=== PATIENT | male | born 1960 | race Caucasian/White ===

== ENCOUNTER → 2019-11-30 10:00 | Outpatient (CLI) | payer BC, SELFPAY ==
[2019-11-30 11:08] LABS: Alanine Aminotransferase 57 IU/L (<50); Albumin 4.5 g/dL (3.5-5.0); Albumin Globulin Ratio 1.5 (1.0-2.8); Alkaline Phosphatase 88 U/L (38-126); Aspartate Aminotransferase 49 IU/L (17-59); BUN Creatinine Ratio 20.9 (6-22); Bilirubin Total 0.8 mg/dL (0.2-1.3); Blood Urea Nitrogen 18 mg/dL (9-20); Calcium 9.2 mg/dL (8.4-10.2); Carbon Dioxide 28 mmol/L (22-32); Chloride 107 mmol/L (98-107); Cholesterol 190 mg/dL (140-199); Estimated Glomerular Filt Rate > 60.0 mL/min (>60); Globulin 3.1 g/dL (1.7-4.1); Glucose 112 mg/dL (70-100); HDL Cholesterol 37 mg/dL (40-60); HEMOLYSIS < 15 (0-50); LDL Cholesterol Calculated 133 mg/dL (<100); Potassium 4.6 mmol/L (3.4-5.1); Sodium 141 mmol/L (137-145); Total Protein 7.6 g/dL (6.3-8.2); Triglycerides 99 mg/dL (35-150)
[2019-11-30 11:16] LABS: Hemoglobin A1C% w Est Avg Glu 5.6 % (4.0-6.0)
[2019-11-30 11:35] LABS: Prostate Specific Antigen Scrn 0.338 ng/mL (0.1-4.0)
[2019-11-30 11:38] LABS: Thyroid Stimulating Hormone 0.64 uIU/mL (0.47-4.68)
== END ==
PROVIDERS: PCP Family Medicine; Referring Provider Family Medicine; Visit Provider Family Medicine
DX: Z13.1 Encounter for screening for diabetes mellitus (principal); Z13.29 Encounter for screening for other suspected endocrine disorder; E78.5 Hyperlipidemia, unspecified; R20.0 Anesthesia of skin
CPT/HCPCS: 36415; 80053; 80061; 83036; 84443; G0103

== ENCOUNTER → 2020-01-12 09:20 | Outpatient (CLI) | payer BC, SELFPAY ==
--- NOTE | 2020-01-12 09:22 | DI.RAD.S_ITS ---
PROCEDURE: XR HAND RT MIN 3V INDICATIONS: 3rd digit pain PIP to DIP, no injury, r/o bony abnormality TECHNIQUE: 3 views of the hand(s) acquired. COMPARISON: [facility], CR, KNEE 3V LEFT, 08/21/2011, 8:36. FINDINGS: Bones: No fractures or dislocations. Carpal bones are normally aligned. No suspicious bony lesions. Soft tissues: No suspicious soft tissue calcifications. IMPRESSION: No acute osseous abnormality of the right hand. Dictated by: Zeyad Salazar M.D. on 01/12/2020 at 8:56 Approved by: Zeyad Salazar M.D. on 01/12/2020 at 8:57
== END ==
PROVIDERS: PCP Family Medicine; Referring Provider Physician Assistant; Visit Provider Physician Assistant
DX: M79.644 Pain in right finger(s) (principal)
CPT/HCPCS: 73130

== ENCOUNTER → 2020-01-13 14:00 | Outpatient (CLI) | payer BC, SELFPAY ==
[2020-01-13 15:19] LABS: Erythrocyte Sedimentation Rate 4 MM/HR (0-15)
[2020-01-13 15:35] LABS: C-Reactive Protein Quant 0.7 mg/dL (<1.0)
== END ==
PROVIDERS: PCP Family Medicine; Referring Provider Physician Assistant; Visit Provider Physician Assistant
DX: M79.644 Pain in right finger(s) (principal)
CPT/HCPCS: 36415; 85651; 86140

== ENCOUNTER → 2020-06-03 13:09 | Outpatient (CLI) | payer BC, SELFPAY ==
[2020-06-03 13:41] LABS: Semen Sperm Prescence Post-Vas Absent (ABSENT)
== END ==
PROVIDERS: PCP Family Medicine; Referring Provider Specialist; Visit Provider Specialist
DX: Z98.52 Vasectomy status (principal)
CPT/HCPCS: 89321

== ENCOUNTER → 2022-02-13 12:30 | Outpatient (CLI) | payer OTHER, SELFPAY ==
[2022-02-13 13:15] LABS: Add Manual Diff / Slide Review NO; Basophils Absolute Auto 0 /uL (0-100); Basophils Percent Auto 0.6 % (0-2); Eosinophils Absolute Auto 200 /uL (0-450); Eosinophils Percent Auto 4.9 % (2-4); Hematocrit 43.4 % (41-53); Hemoglobin 15.3 g/dL (13.5-17.5); Lymphocytes Absolute Auto 1500 /uL (1100-4500); Lymphocytes Percent Auto 32.1 % (25-40); Mean Corpuscular HGB Conc 35.2 % (30-36); Mean Corpuscular Hemoglobin 30.4 PG (26-34); Mean Corpuscular Volume 86.5 fL (80-100); Monocytes Absolute Auto 500 /uL (0-900); Neutrophils Absolute Auto 2500 /uL (1500-7000); Neutrophils Percent Auto 52.4 % (50-75); Platelet Count 208 X10^3/uL (150-400); Red Blood Cell Count 5.02 X10^6/uL (4.5-5.9); Red Cell Distribution Width 12.4 % (11.6-14.8); White Blood Cell Count 4.8 X10^3/uL (4.5-11.0)
[2022-02-13 13:34] LABS: Alanine Aminotransferase 115 IU/L (<50); Albumin 4.4 g/dL (3.5-5.0); Albumin Globulin Ratio 1.4 (1.0-2.8); Alkaline Phosphatase 77 U/L (38-126); Aspartate Aminotransferase 67 IU/L (17-59); BUN Creatinine Ratio 18.2 (6-22); Bilirubin Total 0.9 mg/dL (0.2-1.3); Blood Urea Nitrogen 16 mg/dL (9-20); Calcium 8.5 mg/dL (8.4-10.2); Carbon Dioxide 28 mmol/L (22-32); Chloride 102 mmol/L (98-107); Cholesterol 182 mg/dL (140-199); Estimated Glomerular Filt Rate > 60 mL/min (>60); Globulin 3.2 g/dL (1.7-4.1); Glucose 96 mg/dL (80-110); HDL Cholesterol 39 mg/dL (40-60); LDL Cholesterol Calculated 112 mg/dL (<100); Potassium 4.3 mmol/L (3.4-5.1); Sodium 138 mmol/L (137-145); Total Protein 7.6 g/dL (6.3-8.2); Triglycerides 154 mg/dL (35-150)
[2022-02-13 13:36] LABS: HEMOLYSIS 58 (0-50)
[2022-02-13 14:03] LABS: Prostate Specific Antigen Scrn 0.372 ng/mL (0.1-4.0)
[2022-02-13 14:47] LABS: Thyroid Stimulating Hormone 0.839 uIU/mL (0.47-4.68)
== END ==
PROVIDERS: PCP Family Medicine; Referring Provider Family Medicine; Visit Provider Family Medicine
DX: Z00.00 Encounter for general adult medical examination without abnormal findings (principal); E78.5 Hyperlipidemia, unspecified; Z13.29 Encounter for screening for other suspected endocrine disorder; Z13.6 Encounter for screening for cardiovascular disorders; Z12.5 Encounter for screening for malignant neoplasm of prostate
CPT/HCPCS: 36415; 80053; 80061; 84443; 85025; G0103

== ENCOUNTER → 2022-10-03 10:14 | Outpatient (CLI) | payer OTHER, SELFPAY ==
[2022-10-03 11:32] LABS: Alanine Aminotransferase 54 IU/L (<50); Albumin 4.3 g/dL (3.5-5.0); Albumin Globulin Ratio 1.2 (1.0-2.8); Alkaline Phosphatase 75 U/L (38-126); Aspartate Aminotransferase 46 IU/L (17-59); BUN Creatinine Ratio 15.7 (6-22); Bilirubin Total 0.9 mg/dL (0.2-1.3); Blood Urea Nitrogen 14 mg/dL (9-20); Calcium 8.8 mg/dL (8.4-10.2); Carbon Dioxide 25 mmol/L (22-32); Chloride 104 mmol/L (98-107); Estimated Glomerular Filt Rate > 60 mL/min (>60); Globulin 3.5 g/dL (1.7-4.1); Glucose 108 mg/dL (80-110); HEMOLYSIS 33 (0-50); Potassium 4.2 mmol/L (3.4-5.1); Sodium 138 mmol/L (137-145); Total Protein 7.8 g/dL (6.3-8.2)
[2022-10-04 18:51] LABS: Hep C Virus Ab w/Reflex Quant NEGATIVE s/c (NEGATIVE)
== END ==
PROVIDERS: PCP Family Medicine; Referring Provider Family Medicine; Visit Provider Family Medicine
DX: R79.89 Other specified abnormal findings of blood chemistry (principal)
CPT/HCPCS: 36415; 80053; 86803

== ENCOUNTER → 2022-10-05 16:22 | Outpatient (CLI) | payer OTHER, SELFPAY ==
--- NOTE | 2022-10-05 16:23 | DI.RAD.S_ITS ---
PROCEDURE: XR CHEST 2V INDICATIONS: Chronic cough increasing TECHNIQUE: 2 views of the chest were acquired. COMPARISON: None. FINDINGS: Surgical changes and devices: None. Lungs and pleura: Lungs are clear. No pleural effusions or pneumothorax. Mediastinum: Mediastinal contours are normal. Heart size is normal. Bones and chest wall: No suspicious bony abnormalities. Soft tissues appear unremarkable. IMPRESSION: No acute cardiopulmonary pathology. Dictated by: Abhay Soto M.D. on 10/05/2022 at 16:49 Approved by: Abhay Soto M.D. on 10/05/2022 at 16:49
== END ==
PROVIDERS: PCP Family Medicine; Referring Provider Family Medicine; Visit Provider Family Medicine
DX: R05.3 Chronic cough (principal)
CPT/HCPCS: 71046

== ENCOUNTER → 2024-03-10 10:26 | Outpatient (CLI) | payer OTHER, SELFPAY ==
[2024-03-10 10:58] LABS: Add Manual Diff / Slide Review NO; Basophils Absolute Auto 0 /uL (0-100); Basophils Percent Auto 0.4 % (0-2); Eosinophils Absolute Auto 200 /uL (0-450); Eosinophils Percent Auto 4.2 % (2-4); Hematocrit 44.4 % (41-53); Hemoglobin 15.2 g/dL (13.5-17.5); Lymphocytes Absolute Auto 1400 /uL (1100-4500); Lymphocytes Percent Auto 24.9 % (25-40); Mean Corpuscular HGB Conc 34.2 % (30-36); Mean Corpuscular Hemoglobin 30.1 PG (26-34); Mean Corpuscular Volume 87.8 fL (80-100); Monocytes Absolute Auto 500 /uL (0-900); Monocytes Percent Auto 9.3 % (3-14); Neutrophils Absolute Auto 3300 /uL (1500-7000); Neutrophils Percent Auto 61.2 % (50-75); Platelet Count 224 X10^3/uL (150-400); Red Blood Cell Count 5.06 X10^6/uL (4.5-5.9); White Blood Cell Count 5.5 X10^3/uL (4.5-11.0)
[2024-03-10 11:12] LABS: Alanine Aminotransferase 84 IU/L (<50); Albumin 4.3 g/dL (3.5-5.0); Albumin Globulin Ratio 1.3 (1.0-2.8); Alkaline Phosphatase 63 U/L (38-126); Aspartate Aminotransferase 69 IU/L (17-59); BUN Creatinine Ratio 20.6 (6-22); Bilirubin Total 0.9 mg/dL (0.2-1.3); Blood Urea Nitrogen 20 mg/dL (9-20); Calcium 9.2 mg/dL (8.4-10.2); Carbon Dioxide 26 mmol/L (22-32); Chloride 103 mmol/L (98-107); Cholesterol 195 mg/dL (140-199); Estimated Glomerular Filt Rate > 60 mL/min (>60); Globulin 3.4 g/dL (1.7-4.1); Glucose 108 mg/dL (80-110); HDL Cholesterol 38 mg/dL (40-60); LDL Cholesterol Calculated 103 mg/dL (<100); Potassium 4.3 mmol/L (3.4-5.1); Sodium 136 mmol/L (137-145); Total Protein 7.7 g/dL (6.3-8.2); Triglycerides 272 mg/dL (35-150)
[2024-03-10 11:26] LABS: HEMOLYSIS 61 (0-50)
[2024-03-10 18:13] LABS: Prostate Specific Antigen 0.513 ng/mL (0.10-4.00)
== END ==
PROVIDERS: PCP Family Medicine; Referring Provider Family Medicine; Visit Provider Family Medicine
DX: Z00.00 Encounter for general adult medical examination without abnormal findings (principal); I10 Essential (primary) hypertension; E78.5 Hyperlipidemia, unspecified
CPT/HCPCS: 36415; 80053; 80061; 84153; 85025

== ENCOUNTER → 2025-04-13 15:55 | Outpatient (CLI) | payer OTHER, SELFPAY ==
[2025-04-13 17:15] LABS: Add Manual Diff / Slide Review NO; Hematocrit 46.2 % (41-53); Hemoglobin 16.0 g/dL (13.5-17.5); Lymphocytes Absolute Auto 1500 /uL (1100-4500); Mean Corpuscular HGB Conc 34.6 % (30-36); Mean Corpuscular Hemoglobin 30.1 PG (26-34); Mean Corpuscular Volume 87.2 fL (80-100); Platelet Count 206 X10^3/uL (150-400)
[2025-04-13 17:42] LABS: Alanine Aminotransferase 220 IU/L (<50); Albumin 4.9 g/dL (3.5-5.0); Albumin Globulin Ratio 1.6 (1.0-2.8); Alkaline Phosphatase 89 U/L (38-126); Blood Urea Nitrogen 16 mg/dL (9-20); Calcium 9.5 mg/dL (8.4-10.2); Carbon Dioxide 23 mmol/L (22-32); Chloride 105 mmol/L (98-107); Cholesterol 225 mg/dL (140-199); Estimated Glomerular Filt Rate > 60 mL/min (>60); Globulin 3.0 g/dL (1.7-4.1); Glucose 106 mg/dL (70-99); HDL Cholesterol 45 mg/dL (40-60); HEMOLYSIS < 15 (0-50); Potassium 4.2 mmol/L (3.4-5.1); Sodium 140 mmol/L (137-145); Total Protein 7.9 g/dL (6.3-8.2); Triglycerides 247 mg/dL (35-150); Uric Acid 7.4 mg/dL (3.5-8.5)
[2025-04-13 18:11] LABS: TSH w/ Reflex to FT4 1.24 uIU/mL (0.47-4.68)
[2025-04-13 18:15] LABS: Prostate Specific Antigen 0.413 ng/mL (0.10-4.00)
== END ==
PROVIDERS: PCP Family Medicine; Referring Provider Family Medicine; Visit Provider Family Medicine
DX: Z00.00 Encounter for general adult medical examination without abnormal findings (principal); I10 Essential (primary) hypertension
CPT/HCPCS: 36415; 80053; 80061; 82172; 83090; 84153; 84443; 84550; 85025

== ENCOUNTER → 2025-05-12 07:58 | Outpatient (CLI) | payer OTHER, SELFPAY ==
--- NOTE | 2025-05-12 08:00 | DI.US.S_ITS ---
PROCEDURE: US ABDOMEN LIMITED INDICATIONS: RUQ evaluate liver for steatosis TECHNIQUE: Real-time focused scanning was performed of the abdomen, with image documentation. COMPARISON: None. FINDINGS: The liver demonstrates mildly enlarged size. The liver demonstrates generalized mildly increased echogenicity. This decreases ultrasound sensitivity for detection of hepatic masses. Mobile gallstones are seen. The gallbladder wall is not thickened, measuring 3 mm or less. No specific pericholecystic fluid is seen. The sonographic Quiros sign is negative. There is no biliary dilatation, the common bile duct measures 5 mm. No significant pancreatic abnormality is seen on these images. IMPRESSION: Mild fatty liver infiltration is seen. Mobile gallstones are seen, yet without additional sonographic signs of cholecystitis. Negative for biliary dilatation. Please correlate with physical examination findings, patient presentation, and laboratory values. Dictated by: Helder Cole M.D. on 05/12/2025 at 13:38 Approved by: Helder Cole M.D. on 05/12/2025 at 13:39
[2025-05-12 09:45] LABS: INR 1.1 (0.9-1.3); Prothrombin Time 13.0 SECONDS (9.4-12.5)
[2025-05-12 09:53] LABS: Alanine Aminotransferase 72 IU/L (<50); Albumin 4.9 g/dL (3.5-5.0); Albumin Globulin Ratio 1.7 (1.0-2.8); Alkaline Phosphatase 93 U/L (38-126); Globulin 2.9 g/dL (1.7-4.1); HEMOLYSIS < 15 (0-50); Total Protein 7.8 g/dL (6.3-8.2)
[2025-05-12 10:22] LABS: Hepatitis B Surface Antigen NEGATIVE s/c (NEGATIVE); TSH w/ Reflex to FT4 1.28 uIU/mL (0.47-4.68)
[2025-05-12 10:41] LABS: Hep C Virus Ab w/Reflex Quant NEGATIVE s/c (NEGATIVE)
--- OUTSIDE RECORDS SUMMARY | 2025-05-14 13:28 | XMS_ITS | Clinical Summary ---
Author Organization [facility] Address [address] [place] [address] Care Team Providers Care Scale Agent Name Role Phone Unavailable Primary Care Provider Unavailabl e Social History Tobacco Use Types Packs/Day Years Used Date Smoking Tobacco: Never Assessed Sex and Gender Information Value Date Recorded Sex Assigned at Not on file Legal Sex Male 6:11 PM PDT Gender Identity Not on file Sexual Orientation Not on file Plan of Treatment Not on file
--- OUTSIDE RECORDS SUMMARY | 2025-05-14 13:28 | XMS_ITS | Encounter Summary ---
Author Organization [facility] Address [address] [place] [address] Care Team Providers Care Doctor Of Nurse Anesthesia Practice Name Role Phone Unavailable Primary Care Provider Unavailabl e Prior Encounters Date Type Department Care Team Description 03/27/2025 1:00 PM PDT Office Visit [facility] [address] , [place] [address] [place] [phone] Kaity Royal DDS Encounter for dental examination and cleaning without abnormal findings (Primary Dx) Plan of Treatment Not on file Procedures Procedure Name Priority Date/Time Associated Diagnosis Comments INTRAORAL PHOTO Routine 03/27/2025 1:00 PM PDT INTRAORAL PHOTO Routine 03/27/2025 1:00 PM PDT INTRAORAL PHOTO Routine 03/27/2025 1:00 PM PDT INTRAORAL PHOTO Routine 03/27/2025 1:00 PM PDT ADDITIONAL X-RAY Routine 03/27/2025 1:00 PM PDT ADDITIONAL X-RAY Routine 03/27/2025 1:00 PM PDT ADDITIONAL X-RAY Routine 03/27/2025 1:00 PM PDT ADDITIONAL X-RAY Routine 03/27/2025 1:00 PM PDT ADDITIONAL X-RAY Routine 03/27/2025 1:00 PM PDT SINGLE X-RAY Routine 03/27/2025 1:00 PM PDT BITEWINGS - FOUR RADIOGRAPHIC IMAGES Routine 03/27/2025 1:00 PM PDT [facility] [address] CAPTURE AND INTERPRETATION WITH FIELD OF VIEW OF BOTH JAWS; WITH OR WITHOUT CRANIUM Routine 03/27/2025 1:00 PM PDT COMPREHENSIVE ORAL EVALUATION - NEW OR ESTABLISHED PATIENT Routine 03/27/2025 1:00 PM PDT Encounter for dental examination and cleaning without abnormal findings 31 O COMPOSITE FILLING Routine 12:00 AM PDT 30 O COMPOSITE FILLING Routine 12:00 AM PDT 15 O COMPOSITE FILLING Routine 10/04/202 5 12:00 AM PDT 3 MO COMPOSITE FILLING Routine 5 12:00 AM PDT 2 MURRAY COMPOSITE FILLING Routine 5 12:00 AM PDT 18 O COMPOSITE FILLING Routine 5 12:00 AM PDT 19 MO COMPOSITE FILLING Routine 03/27/20 25 12:00 AM PDT 20 DO COMPOSITE FILLING Routine 03/27/20 25 12:00 AM PDT 14 MO COMPOSITE FILLING Routine 03/27/20 25 12:00 AM PDT 13 MOD COMPOSITE FILLING Routine 025 12:00 AM PDT 12 DO COMPOSITE FILLING Routine 03/27/20 25 12:00 AM PDT 4 MO COMPOSITE FILLING Routine 5 12:00 AM PDT 5 DO COMPOSITE FILLING Routine 5 12:00 AM PDT 8 ROOT CANAL Routine 03/27/2025 12:00 AM PDT Visit Diagnoses Diagnosis Start Date Encounter for dental examination and cleaning without abnormal findings 03/27/2025 Insurance [employer]
--- OUTSIDE RECORDS SUMMARY | 2025-05-14 13:28 | XMS_ITS | Clinical Summary ---
Author Organization [facility] Address [address] [place] [address] Care Team Providers Care Turret Lathe Tender Name Role Phone Unavailable Primary Care Provider Unavailabl e Encounters Date Type Department Care Team Description 03/27/2025 1:00 PM PDT Office Visit [facility] [address] , [place] [address] [place] [phone] Kaity Royal DDS Encounter for dental examination and cleaning without abnormal findings (Primary Dx) from Last 3 Months Social History Tobacco Use Types Packs/Day Years Used Date Smoking Tobacco: Never Assessed Sex and Gender Information Value Date Recorded Sex Assigned at Not on file Legal Sex Male 3:42 PM PDT Gender Identity Not on file Sexual Orientation Not on file Plan of Treatment Health Maintenance Due Date Last Done Comments Dental Prophylaxis 1961 Dental Oral Exam 09/26/2025 03/27/2025 Dental X-Ray: Bitewings 09/26/2025 03/27/2025 Dental CBCT 03/27/2028 03/27/2025 Dental X-Ray: Full Mouth 03/28/2028 03/27/2025, 09/2024 Dental X-Ray: Panoramic 03/28/2028 03/27/2025 Procedures Procedure Name Priority Date/Time Associated Diagnosis [...] abnormal findings 31 O COMPOSITE FILLING Routine 5 12:00 AM PDT 30 O COMPOSITE FILLING Routine 5 12:00 AM PDT 15 O COMPOSITE FILLING Routine 5 12:00 AM PDT 3 MO COMPOSITE [...] ROOT CANAL Routine 03/27/2025 12:00 AM PDT from Last 3 Months Insurance [employer] FED[employer]AL
--- OUTSIDE RECORDS SUMMARY | 2025-05-14 13:28 | XMS_ITS | Patient Health Record ---
Author Organization [facility] - Address [address] [place], [place] [id number] Support Name Relationship Address Phone Sheldon Delatorre Guarantor Unknown [phone] Reason For Referral No Information Medications Medication SIG (Take, Route, Frequency, Duration) Notes Start Date End Date Status Tamiflu 75mg 1 tab po q 12 hrs; Duration: 5 days 0 09/02/2016 Active Social History Tobacco Use: Social History Observation Description Date Details (start date - stop date) Never Smoker NA - NA Tobacco Use/Smoking Question Answer Notes Are you a nonsmoker Plan Of Treatment No Information Insurance Providers Payer Name Payer Address Payer Phone Subscriber Number Group Number Insured Name Patient Relationship to Insured Coverage Start Date Coverage End Date 1 [facility] [address] [address] [place] [address] [id number] Sheldon Delatorre Self - patient is the insured
== END ==
LOC: US 07:58
PROVIDERS: PCP Family Medicine; Referring Provider Family Medicine; Visit Provider Family Medicine
DX: R74.8 Abnormal levels of other serum enzymes (principal); I10 Essential (primary) hypertension; E78.00 Pure hypercholesterolemia, unspecified; K76.0 Fatty (change of) liver, not elsewhere classified; K80.20 Calculus of gallbladder without cholecystitis without obstruction
CPT/HCPCS: 36415; 76705; 80076; 82390; 84443; 85610; 86803; 87340